=== PATIENT | female | born 1995 | race American Indian/Alaskan Native ===

== ENCOUNTER 2017-12-02 05:28 | Emergency (ER) | payer BC ==
[2017-12-02 05:49] VITALS: BP 109/73
[2017-12-02 06:08] LABS: HCG Qualitative,Urine Negative (Negative)
--- NOTE | 2017-12-02 07:18 | Cat Scan Report ---
FINAL REPORT PROCEDURE: CT FACIAL BONES WO CON TECHNIQUE: Computerized tomography of the facial bones and soft tissues with axial and coronal sections performed from the cranial aspect of the frontal sinuses to the caudal portion of the mandible without contrast material. HISTORY: Pain and swelling around right eye COMPARISON: No prior studies are available for comparison. FINDINGS: Bones: No significant abnormality. Paranasal sinuses: Clear. Soft tissues: There is right facial, periorbital and frontal soft tissue swelling. There is no mass or abscess. There is no proptosis. The globes, optic nerves and extraocular muscles are intact.. Other: None. IMPRESSION: There is right facial, periorbital and frontal soft tissue swelling. There is no acute bony abnormality. The paranasal sinuses are clear.
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
== END 2017-12-02 09:05 | disposition home or self-care (01) ==
LOC: ED 05:28
DX: H11.31 Conjunctival hemorrhage, right eye (principal); S00.11XA Contusion of right eyelid and periocular area, initial encounter; X58.XXXA Exposure to other specified factors, initial encounter; Y93.89 Activity, other specified; Y92.89 Other specified places as the place of occurrence of the external cause; Y99.8 Other external cause status
CPT/HCPCS: 70486; 81025; 99284

== ENCOUNTER 2019-01-27 21:32 | Emergency (ER) | payer BC ==
[2019-01-27 21:54] VITALS: BP 107/65
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
[2019-01-27] MEDS ORDERED: TETANUS,DIPH,PERTUSS(ACELL) VACCINE 0.5 ML SYRINGE IM ONE (22:40)
[2019-01-27] MEDS ORDERED: IBUPROFEN 600 MG TAB PO ONE (22:40)
[2019-01-27] MEDS ORDERED: cephALEXin 500 MG CAP PO ONE (22:40)
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
== END 2019-01-28 00:30 | disposition home or self-care (01) ==
LOC: ED 21:32
DX: S01.511A Laceration without foreign body of lip, initial encounter (principal); S01.512A Laceration without foreign body of oral cavity, initial encounter; J45.909 Unspecified asthma, uncomplicated; W51.XXXA Accidental striking against or bumped into by another person, initial encounter; Y93.89 Activity, other specified; Y92.89 Other specified places as the place of occurrence of the external cause; Y99.8 Other external cause status
CPT/HCPCS: 90471; 90715; 99282

== ENCOUNTER 2019-04-03 20:22 | Emergency (ER) | payer BC ==
[2019-04-03] MEDS ORDERED: ACETAMINOPHEN 325 MG TAB ONE (21:18)
[2019-04-03] MEDS ORDERED: ACETAMINOPHEN 325 MG TAB PO ONE (21:19)
[2019-04-03 21:45] VITALS: BP 110/63
--- NOTE | 2019-04-03 21:48 | Emergency Department Report ---
Blank Doc - Documentation Documentation: 24-year-old female that presents with abdominal pain, n/v, and subjective fever. This initial assessment/diagnostic orders/clinical plan/treatment(s) is/are subject to change based on patient's health status, clinical progression and re- assessment by fellow clinical providers in the ED. Further treatment and workup at subsequent clinical providers discretion. Patient/guardians urged not to elope from the ED as their condition may be serious if not clinically assessed and managed. Initial orders include: 1- Patient sent to [facility] for further evaluation and treatment 2- labs 3- UA
== END 2019-04-03 22:10 | disposition left against medical advice (07) ==
LOC: ED 20:22
DX: R51 Headache (principal); Z53.21 Procedure and treatment not carried out due to patient leaving prior to being seen by health care provider